=== PATIENT | female | born 1950 | race Caucasian/White ===

== ENCOUNTER 2019-05-06 12:06 | Observation (INO) | payer MEDICARE ==
[~2019-05-06] VITALS: Ht 175.3 cm; Wt 104.5 kg
[2019-05-06] MEDS ORDERED: LEVOXYL100 MCG PO (12:21)
[2019-05-06] MEDS ORDERED: LEVOXYL25 MCG PO (12:22)
[2019-05-06] MEDS ORDERED: NEURONTIN 300300 MG PO (12:24)
[2019-05-06] MEDS ORDERED: BYSTOLIC10 MG PO (12:24)
[2019-05-06] MEDS ORDERED: VITAMIN D31000 UNIT PO (12:25)
[2019-05-06] MEDS ORDERED: VITAMIN B-12500 MCG PO (12:25)
[2019-05-06] MEDS ORDERED: ASPIRIN81 MG PO (12:26)
[2019-05-06] MEDS ORDERED: LISINOPRIL20 MG PO (12:26)
[2019-05-06] MEDS ORDERED: ASCORBIC ACID500 MG PO (12:26)
[2019-05-06] MEDS ORDERED: LIPITOR40 MG PO (12:28)
[2019-05-06] MEDS ORDERED: FISH OIL 1,0001 CA1 PO (12:28)
[2019-05-06 12:40] LABS: BASOPHILS 0 % (0-2); EOSINOPHILS 0 % (0-7); HEMATOCRIT 36.6 % (36.0-48.0); HEMOGLOBIN 12.8 g/dL (12-16); IMMATURE GRANULOCYTES 0.4 % (0-5); LYMPHOCYTES 13.5 % (15-50); MCH 30.3 pg (26.0-34.0); MCV 86.5 fL (80.0-100.0); MEAN PLATELET VOLUME 9.8 fL (7.4-10.4); NEUTROPHILS 82.1 % (40-80); PLATELET COUNT 179 10x3/uL (130-400); RBC 4.23 10x6/uL (4.00-5.40); RDW 13.3 % (11.5-14.5); WBC 6.7 10x3/uL (4.8-10.8)
[2019-05-06 12:50] LABS: APTT 28.7 SECONDS (22.8-39.4); INR 1.06 (0.85-1.17); PROTIME 13.3 SECONDS (11.6-15.0)
[2019-05-06 12:53] LABS: CALC OSMOLALITY 291 mosm/kg (275-300); CALCIUM 9.2 mg/dL (8.5-10.1); CARBON DIOXIDE 23.2 mmol/L (21.0-32.0); CHLORIDE - SERUM 100 mmol/L (98-107); CREATININE - SERUM 0.9 mg/dL (0.6-1.3); GLUCOSE 398 mg/dL (74-106); POTASSIUM - SERUM 3.7 mmol/L (3.5-5.1); SODIUM 138 mmol/L (136-145); UREA NITROGEN 10 mg/dL (7-18); eGFR NON AFRICAN AMERICAN 65 mL/min (90-120)
[2019-05-06 13:32] LABS: ALBUMIN 3.9 g/dL (3.4-5.0); ALKALINE PHOSPHATASE 115 U/L (46-116); ALT (SGPT) 24 U/L (10-68); BILIRUBIN - TOTAL 0.65 mg/dL (0.2-1.3); CKMB 0.8 U/L (0.0-3.6); CREATINE KINASE 38 UL (21-215); MAGNESIUM - SERUM 1.6 mg/dL (1.8-2.4); PROTEIN - SERUM 7.2 g/dL (6.4-8.2)
[2019-05-06 13:33] LABS: TROPONIN-I < 0.017 ng/mL (0.000-0.060)
--- NOTE | 2019-05-06 14:49 | MORECARE ---
CASE MANAGEMENT DISCHARGE SUMMARY PATIENT: GRAZYNA LOPEZ UNIT: [id number] ADM DATE: 05/06/19 AGE: 69 : 48 SEX: F ROOM/BED: D.7672 AUTHOR: RIGOBERTO PATINO PHYSICIAN: REFERRING PHYSICIAN: CHAPIS HOLDEN MD DATE OF SERVICE: 05/06/19 Discharge Plan Patient Name: GRAZYNA LOPEZ Facility: [facility]:[place] : 1950 Planned Disposition: Anticipated Discharge Date: 05/07/19 Discharge Date: Expected LOS: 1 Initial Reviewer: [id number] Initial Review Date: 05/06/2019 Generated: 05/06/19 3:49 pm DCP- Discharge Planning Updated by [email or web address]: Irma Mackey on 05/06/19 1:[address] ROSS delivered, explained, signed by the patient, and placed in her chart. Signed form also left with patient. Patient also reported she parked her car in front of the Emergency Room Entrance due to having chest pain and not being able to walk up the hill to the entrance. CM spoke to [place] CM Director and Mor Road Advisor regarding moving her car. CM and Mor met with the patient, she gave verbal consent for Mor to move her car to the parking lot. Mor moved her car to the front row of the ER parking spaces, and returned her keys to her. Irma Mackey RN, CCM Coverage Notice Reviewer: [id number] - Irma Mackey Notice Issued Date-Time: 05/06/2019 13:23 Notice Type: Medicare Outpatient Observation Notice Notice Delivered To: Patient Relationship to Patient: Lining Machine Operator Name: Delivery Method: HAND - Hand Delivered Ivory Days: Prior Verbal Notification: Recipient Understood Notice: Recipient Signature: Med Rec Note Co-signed by Attending: Coverage Notice Comment: ROSS delivered, explained, signed by the patient, and placed in his chart. Signed form also left with patient. Irma Mackey RN , CCM Patient Name: GRAZYNA LOPEZ Page [phone] at 144 All edits/amendments must be made on the electronic document DICTATION DATE: 05/06/19 1445 COOKIE BREAKER: DM 05/06/19 144 RPT#: [id number] DC DATE: STATUS: ADM IN [facility] [address] [place] [address] END OF REPORT
--- NOTE | 2019-05-06 15:17 | NUR ---
TRIED TO CALL REPORT ONCE BEFORE AND AGAIN AT 1513 AND WAS TOLD THE ROOM WAS DIRTY AND COULD NOT BRING PT. NO REPORT WAS GIVEN.
[2019-05-06] MEDS ORDERED: ZOLOFT50 MG PO (16:33)
[2019-05-06] MEDS ORDERED: FUROSEMIDE40 MG PO (16:34)
[2019-05-06] MEDS ORDERED: K-TAB10 MEQ PO (16:34)
[2019-05-06] MEDS ORDERED: ALBUTEROL SULF8.5 GM INH (16:35)
--- NOTE | 2019-05-06 16:42 | NUR ---
RECIVED FROM ER PER WC TO ROOM 2122. ADMIT ASSESSMENT PER RN
[2019-05-06 17:00] LABS: T4 THYROXIN - FREE 1.06 ng/dL (0.76-1.46); THYROID STIMULATING HORMONE 2.38 uIU/mL (0.36-3.74)
[2019-05-06 17:02] VITALS: BP 127/70
[2019-05-06 17:10] VITALS: BP 127/70; BMI 34.0
[2019-05-06 18:13] LABS: KETONE - SERUM NEGATIVE (NEGATIVE)
[2019-05-06 19:29] LABS: CKMB 0.9 U/L (0.0-3.6); CREATINE KINASE 34 UL (21-215); TROPONIN-I 0.023 ng/mL (0.000-0.060)
--- NOTE | 2019-05-06 20:00 | NUR ---
RECIEVED BEDSIDE REPORT. EVENING ROUNDS COMPLETED. VSS, AAOX3, NO S/S OF DISTRESS. PT EKG DUE. ALTHOUGH NO EKG ELECTRODES AT THIS TIME. HAVE CALLED AND NOTIFIED AIR CONTROL/ANTI AIR WARFARE OFFICER FOR EKG ELECTRODES. PT DENIES ANY FURTHER NEEDS AT THIS TIME. WILL CPOC.
[2019-05-06 20:33] VITALS: BP 119/54
[2019-05-06 22:29] LABS: APPEARANCE CLEAR (CLEAR); COLOR YELLOW (YELLOW); NITRITE NEGATIVE (NEGATIVE); PROTEIN NEGATIVE (NEGATIVE)
[2019-05-06 22:30] LABS: BACTERIA MODERATE /hpf (NEGATIVE); BILIRUBIN NEGATIVE (NEGATIVE); GLUCOSE 1000 mg/dL (NEGATIVE); KETONE NEGATIVE (NEGATIVE); RED CELLS - URINE OCC /hpf (0-5); UROBILINOGEN NORMAL (NORMAL)
[2019-05-06 22:31] LABS: EPITHELIAL CELLS 0-5 /hpf (0-5)
[2019-05-07] VITALS (7 sets, daily range): BP systolic 99–147; BP diastolic 50–83; Ht 175.3 cm; Wt 104.5 kg
[2019-05-07 02:28] LABS: CKMB 1.2 U/L (0.0-3.6); CREATINE KINASE 33 UL (21-215); TROPONIN-I 0.017 ng/mL (0.000-0.060)
[2019-05-07 06:37] LABS: BASOPHILS 0 % (0-2); EOSINOPHILS 0 % (0-7); HEMOGLOBIN 12.3 g/dL (12-16); IMMATURE GRANULOCYTES 0.2 % (0-5); LYMPHOCYTES 17.2 % (15-50); MCH 29.7 pg (26.0-34.0); MCHC 34.2 g/dL (31.0-37.0); MONOCYTES 5.4 % (2-11); NEUTROPHILS 77.2 % (40-80); PLATELET COUNT 161 10x3/uL (130-400); RBC 4.14 10x6/uL (4.00-5.40); RDW 13.2 % (11.5-14.5); WBC 5.4 10x3/uL (4.8-10.8)
[2019-05-07 06:50] LABS: ALBUMIN 3.3 g/dL (3.4-5.0); ALKALINE PHOSPHATASE 86 U/L (46-116); ALT (SGPT) 19 U/L (10-68); BILIRUBIN - TOTAL 0.62 mg/dL (0.2-1.3); CALC OSMOLALITY 286 mosm/kg (275-300); CALCIUM 8.5 mg/dL (8.5-10.1); CARBON DIOXIDE 25.6 mmol/L (21.0-32.0); CHLORIDE - SERUM 104 mmol/L (98-107); CREATININE - SERUM 0.8 mg/dL (0.6-1.3); GLUCOSE 275 mg/dL (74-106); MAGNESIUM - SERUM 1.5 mg/dL (1.8-2.4); PHOSPHOROUS 3.4 mg/dL (2.5-4.9); POTASSIUM - SERUM 3.6 mmol/L (3.5-5.1); PROTEIN - SERUM 6.4 g/dL (6.4-8.2); SODIUM 139 mmol/L (136-145); UREA NITROGEN 11 mg/dL (7-18); eGFR NON AFRICAN AMERICAN 75 mL/min (90-120)
--- NOTE | 2019-05-07 07:10 | NUR ---
REPORT RECEIVED FROM DIRECT CARE WORKER AND PATIENT CARE ASSUMED. PATIENT LAYING IN BED ON BACK AWAKE, ALERT AND ORIENTED X 4. PATIENT DENIES ANY NEEDS OR PAIN. WILL CONTINUE WITH PLAN OF CARE. SR UP X 2 BED IN LOW POSITION AND CALL LIGHT IN REACH.
--- NOTE | 2019-05-07 11:32 | MORECARE ---
CASE MANAGEMENT DISCHARGE SUMMARY PATIENT: GRAZYNA LOPEZ UNIT: [id number] ADM DATE: 05/06/19 AGE: 69 : 48 SEX: F ROOM/BED: D.6742 AUTHOR: RIGOBERTO PATINO PHYSICIAN: REFERRING PHYSICIAN: CHAPIS HOLDEN MD DATE OF SERVICE: 05/07/19 Discharge Plan Patient Name: GRAZYNA LOPEZ Facility: [facility]:[place] : 1950 Planned Disposition: Home Anticipated Discharge Date: 05/07/19 Discharge Date: Expected LOS: 1 Initial Reviewer: [id number] Initial Review Date: 05/06/2019 Generated: 05/07/19 12:31 pm DCP- Discharge Planning Updated by [email or web address]: Irma Mackey on 05/06/19 1:[address] ROSS delivered, explained, signed by the patient, and placed in her chart. Signed form also left with patient. Patient also reported she parked her car in front of the Emergency Room Entrance due to having chest pain and not being able to walk up the hill to the entrance. CM spoke to [place] CM Director and Mor Flux Tube Attendant regarding moving her car. CM and Mor met with the patient, she gave verbal consent for Mor to move her car to the parking lot. Mro moved her car to the front row of the ER parking spaces, and returned her keys to her. Irma Mackey RN, CCM Coverage Notice Reviewer: [id number] - Irma Mackey Notice Issued Date-Time: 05/06/2019 13:23 Notice Type: Medicare Outpatient Observation Notice Notice Delivered To: Patient Relationship to Patient: Bar Staff Name: Delivery Method: HAND - Hand Delivered Ivory Days: Prior Verbal Notification: Recipient Understood Notice: Recipient Signature: Med Rec Note Co-signed by Attending: Coverage Notice Comment: ROSS delivered, explained, signed by the patient, and placed in his chart. Signed form also left with patient. Irma Mackey RN , CCM Last DP export: 05/06/19 1:49 p Patient Name: GRAZYNA LOPEZ Page 47815 at 1132 All edits/amendments must be made on the electronic document DICTATION DATE: 05/07/19 113 PLANT AND EQUIPMENT WORKER: GLADYS 05/07/19 1131 RPT#: [id number] DC DATE: STATUS: ADM IN [facility] [address] [place] [address] END OF REPORT
--- NOTE | 2019-05-07 11:52 | MORECARE ---
CASE MANAGEMENT DISCHARGE SUMMARY PATIENT: GRAZYNA LOPEZ UNIT: [id number] ADM DATE: 05/06/19 AGE: 69 : 48 SEX: F ROOM/BED: D.3636 AUTHOR: SUKUMAR,DOC PHYSICIAN: REFERRING PHYSICIAN: CHAPIS HOLDEN MD DATE OF SERVICE: 05/07/19 Discharge Plan Patient Name: GRAZYNA LOPEZ Facility: [facility]:[place] : 1950 Planned Disposition: Home Anticipated Discharge Date: 05/07/19 Discharge Date: Expected LOS: 1 Initial Reviewer: [id number] Initial Review Date: 05/06/2019 Generated: 05/07/19 12:52 pm Comments DCP- Discharge Planning Updated by [id number]: Ezio Vazquez on 05/07/19 10:[address] Patient Name: GRAZYNA LOPEZ Encounter No: [id number] : 1950 Primary Insurance: [employer] MEDICARE ADV Anticipated DC Date: 05-07-2019 Planned Disposition: Home DCP follow-up note: CM RECEIVED MESSAGE FROM SHRUTI OF NUCLEAR MEDICINE ASKING TO SPEAK TO CM SOON POSSIBLE. CM MET WITH SHRUTI WHO INFORMED CM THAT PT IS REFUSING CARIOLYTE STRESS TEST BECAUSE IT IS NOT COVERED BY INSURANCE. CM MET WITH PT IN ROOM. PT REPORTS THAT THE GIRL YESTERDAY TOLD HER THAT NOTHING WAS GOING TO BE PAID FOR BY INSUARANCE AND SHE NEEDS TO GET STANDARD MEDICARE. PT PRODUCED "ROSS" FORM FROM MEDICARE. CM ATTEMPTED TO EXPLAIN THAT THE NOTICE ONLY EXPLAINS THAT PT IS IN OBSERVATION AND.....PT CUT CM OFF AND LOUDLY INFORMED CM THAT SHE IS NOT GOING TO HAVE TESTS AND BE STUCK WITH A BIG BILL. CM ASKED FOR PT'S INSURANCE CARD. PT HAS NOT CALLED HER INSURANCE COMPANY. CM EDUCATED PT THAT SHE MAY CALL THE TOLL FREE NUMBER TO HER INSURANCE TO FIND OUT WHAT SERVICES WILL BE COVERED. PT DID NOT WANT TO DO THIS. CM OFFERED TO CALL PT'S INSURANCE COMPANY, PT ACCEPTED. CM CALLED [employer], SPOKE TO LORENA AND ASKED ABOUT CARDIOLYTE STRESS TEST IN OBSERVATION STATUS. LORENA ADVISED PT HAS $50 COPAY FOR TEST. REFERENCE # [id number]. CM NOTIFIED PT AND PROVIDED ALL INFORMATION RELATED TO PHONE CALL. CM ADVISED PT THAT SHE WOULD BE BILLED ANY COPAYS AFTER BILLING HAS BEEN PROCESSED. PT STATES SHE WILL ACCEPT THE TEST. SHRUTI NOTIFIED WHO MET WITH PT TO DISCUSS THE STRESS TEST. A FEW MINUTES LATER, SHRUTI NOTIFIED CM THAT PT PROVIDED A CHECK FOR HER $50 COPAY. CM CALLED AND SPOKE TO CM DIRECTOR STEPHEN WHO NOTIFIED BUSINESS OFFICE. TARUN GEORGE PICKED UP CHECK AND WILL PROVIDE PT WITH RECEIPT. CM TO CONTINUE TO FOLLOW AND ASSIST NEEDED. Ezio Vazquez, CASE MANAGEMENT DCP- Discharge Planning Updated by [email or web address]: Irma Mackey on 05/06/19 1:[address] ROSS delivered, explained, signed by the patient, and placed in her chart. Signed form also left with patient. Patient also reported she parked her car in front of the Emergency Room Entrance due to having chest pain and not being able to walk up the hill to the entrance. CM spoke to [place] CM Director and [facility] Comsec Manager regarding moving her car. CM and Mor met with the patient, she gave verbal consent for Mor to move her car to the parking lot. Mor moved her car to the front row of the ER parking spaces, and returned her keys to her. Irma Mackey RN, CCM Coverage Notice Reviewer: [id number] - Irma Mackey Notice Issued Date-Time: 05/06/2019 13:23 Notice Type: Medicare Outpatient Observation Notice Notice Delivered To: Patient Relationship to Patient: Immunologist Name: Delivery Method: HAND - Hand Delivered Ivory Days: Prior Verbal Notification: Recipient Understood Notice: Recipient Signature: Med Rec Note Co-signed by Attending: Coverage Notice Comment: ROSS delivered, explained, signed by the patient, and placed in his chart. Signed form also left with patient. Irma Mackey RN , CCM Last DP export: 05/07/19 10:32 a Patient Name: GRAZYNA LOPEZ Page 52723 at 1152 All edits/amendments must be made on the electronic document DICTATION DATE: 05/07/19 1152 MANAGER OF HUMAN RESOURCES: GLADYS 05/07/19 115 RPT#: [id number] DC DATE: STATUS: ADM IN [facility] [address] [place] [address] END OF REPORT
--- NOTE | 2019-05-07 13:02 | NUR ---
PATIENBT LAYING IN BED ON BACK. RE-SITED IV TO RT OUTER FOREARM 22 G. PATIENT TOLERATED WELL. PATIENT IS STABLE AND VSS. PATIENT DENIES ANY NEEDS OR PAIN. WILL CONTINUE TO MONITOR. SR UP X 2 BED IN LOW POSITION AND CALL LIGHT IN REACH.
--- NOTE | 2019-05-07 16:34 | NUR ---
PATIENT HAD NUC STRESS TEST. PATIENT BACK TO ROOM. PATIENT IS STABLE AND VSS. PATIENT DENIES ANY NEEDS OR PAIN. WILL CONTINUE TO MONITOR. SR UP X 2 BED IN LOW POSITION AND CALL LIGHT IN REACH.
[2019-05-08 04:00] VITALS: BP 106/62
--- NOTE | 2019-05-08 07:10 | NUR ---
REPORT RECEIVED FROM POULTRY PATHOLOGIST AND PATIENT CARE ASSUMED. PATIENT SITTING UP IN BED AWAKE, ALERT AND ORIENTED X 4. PAITENT IS STABLE AND VSS. PATIENT COMPLAINS OF NAUSEA. MEDICATED PER MAR WITH ZOFRAN 4 MG IV. WILL CONTINUE TO MONITOR. SR UP X 2 BED IN LOW POSITION AND CALL LIGHT IN REACH.
[2019-05-08 08:03] VITALS: BP 122/70
[2019-05-08] MEDS ORDERED: GLUCOPHAGE500 MG PO (10:54)
[2019-05-08 12:19] VITALS: BP 124/71
--- NOTE | 2019-05-08 13:00 | NUR ---
PATIENT IS STABLE AND VSS. PATIENT DENIES ANY PAIN OR NEEDS. PATIENT IS DCD HOME FOR SELF CARE. WRITTEN AND VERBAL ORDERS GIVEN. PATIENT VERBALIZED UNDERSTANDING AND SIGNED PAPERWORK. IV DCD WITHOUT DIFFICULTY AND PRESSURE BANDAGE APPLIED. ENTIRE CATHETER WAS INTACT. PATIENT TO FRONT DOOR VIA WC ACCOMPANIED BY HOSPITAL PERSONNEL TO PRIVATE VEHICLE DRIVEN BY FRIEND.
--- NOTE | 2019-05-08 14:30 | NUR ---
Nutrition Follow-up: Visited with pt again today to discuss diabetic diet. Pt reports that her DM is not new and was diagnosed in 2012 or 2013. Also reports that she never received detailed diabetic education and is interested in OP DM educ. Drinks diet sodas occasionally (denies regular soda) and has decreased intake of concentrated sweets. Diet: ADA/AHA PO intake: 100% Wt: 230# Last BM: 05/07 Labs noted: Glu 275 Meds noted: Glucophage -Discussed diabetic diet. Questions answered. -Rec OP DM education.
--- NOTE | 2019-05-09 09:47 | MORECARE ---
CASE MANAGEMENT DISCHARGE SUMMARY PATIENT: GRAZYNA LOPEZ UNIT: [id number] ADM DATE: 05/06/19 AGE: 69 : 48 SEX: F ROOM/BED: D.3931 AUTHOR: SUKUMAR,DOC PHYSICIAN: REFERRING PHYSICIAN: CHAPIS HOLDEN MD DATE OF SERVICE: 05/09/19 Discharge Plan Patient Name: GRAZYNA LOPEZ Facility: [facility]:[place] : 1950 Planned Disposition: Home Anticipated Discharge Date: 05/08/19 Discharge Date: 05/08/2019 Expected LOS: 2 Initial Reviewer: [id number] Initial Review Date: 05/06/2019 Generated: 05/09/19 10:47 am DCP- Discharge Planning Updated by [email or web address]: Ezio Vazquez on 05/07/19 10:[address] Patient Name: GRAZYNA LOPEZ Encounter No: [id number] : 1950 Primary Insurance: [employer] MEDICARE ADV Anticipated DC Date: 05-07-2019 Planned Disposition: Home DCP follow-up note: CM RECEIVED MESSAGE FROM SHRUTI OF NUCLEAR MEDICINE ASKING TO SPEAK TO CM SOON POSSIBLE. CM MET WITH SHRUTI WHO INFORMED CM THAT PT IS REFUSING CARIOLYTE STRESS TEST BECAUSE IT IS NOT COVERED BY INSURANCE. CM MET WITH PT IN ROOM. PT REPORTS THAT THE GIRL YESTERDAY TOLD HER THAT NOTHING WAS GOING TO BE PAID FOR BY INSUARANCE AND SHE NEEDS TO GET STANDARD MEDICARE. PT PRODUCED "ROSS" FORM FROM MEDICARE. CM ATTEMPTED TO EXPLAIN THAT THE NOTICE ONLY EXPLAINS THAT PT IS IN OBSERVATION AND.....PT CUT CM OFF AND LOUDLY INFORMED CM THAT SHE IS NOT GOING TO HAVE TESTS AND BE STUCK WITH A BIG BILL. CM ASKED FOR PT'S INSURANCE CARD. PT HAS NOT CALLED HER INSURANCE COMPANY. CM EDUCATED PT THAT SHE MAY CALL THE TOLL FREE NUMBER TO HER INSURANCE TO FIND OUT WHAT SERVICES WILL BE COVERED. PT DID NOT WANT TO DO THIS. CM OFFERED TO CALL PT'S INSURANCE COMPANY, PT ACCEPTED. CM CALLED [employer], SPOKE TO LORENA AND ASKED ABOUT CARDIOLYTE STRESS TEST IN OBSERVATION STATUS. LORENA ADVISED PT HAS $50 COPAY FOR TEST. REFERENCE # [id number]. CM NOTIFIED PT AND PROVIDED ALL INFORMATION RELATED TO PHONE CALL. CM ADVISED PT THAT SHE WOULD BE BILLED ANY COPAYS AFTER BILLING HAS BEEN PROCESSED. PT STATES SHE WILL ACCEPT THE TEST. SHRUTI NOTIFIED WHO MET WITH PT TO DISCUSS THE STRESS TEST. A FEW MINUTES LATER, SHRUTI NOTIFIED CM THAT PT PROVIDED A CHECK FOR HER $50 COPAY. CM CALLED AND SPOKE TO CM DIRECTOR STEPHEN WHO NOTIFIED BUSINESS OFFICE. TARUN VAZQUEZ PICKED UP CHECK AND WILL PROVIDE PT WITH RECEIPT. CM TO CONTINUE TO FOLLOW AND ASSIST NEEDED. Ezio Vazquez, CASE MANAGEMENT DCP- Discharge Planning Updated by [id number]: Irma Mackey on 05/06/19 1:[address] ROSS delivered, explained, signed by the patient, and placed in her chart. Signed form also left with patient. Patient also reported she parked her car in front of the Emergency Room Entrance due to having chest pain and not being able to walk up the hill to the entrance. CM spoke to [place] CM Director and [facility] Microfilm Equipment Inspector regarding moving her car. CHAS and Mor met with the patient, she gave verbal consent for Mor to move her car to the parking lot. Mor moved her car to the front row of the ER parking spaces, and returned her keys to her. Irma Mackey RN, CCM Coverage Notice Reviewer: [id number] - Irma Mackey Notice Issued Date-Time: 05/06/2019 13:23 Notice Type: Medicare Outpatient Observation Notice Notice Delivered To: Patient Relationship to Patient: Retail Business Manager Name: Delivery Method: HAND - Hand Delivered Ivory Days: Prior Verbal Notification: Recipient Understood Notice: Recipient Signature: Med Rec Note Co-signed by Attending: Coverage Notice Comment: ROSS delivered, explained, signed by the patient, and placed in his chart. Signed form also left with patient. Irma Mackey RN , CCM Last DP export: 05/07/19 10:52 a Patient Name: GRAZYNA LOPEZ Page [phone] Electronically Signed by RIGOBERTO [facility] OKLAHOMA CITYKarlos on 05/09/19 at 0947 All edits/amendments must be made on the electronic document DICTATION DATE: 05/09/19946 [employer]OL [employer] HEAD COOK: GLADYS 05/09/19946 RPT#: [id number] DC DATE:05/08/19 STATUS: DIS IN [place] [address] [place] [address] END OF REPORT
== END 2019-05-08 13:00 | disposition home or self-care (01) ==
LOC: D.ER 12:06 → D.M2 13:20 → OBSVTIME 13:36 → D.M2 05-08 13:00
PROVIDERS: Family Medicine; ADMIT Internal Medicine Nephrology; ATTEND Internal Medicine Nephrology
DX: I25.119 Atherosclerotic heart disease of native coronary artery with unspecified angina pectoris (principal); R00.2 Palpitations; E11.9 Type 2 diabetes mellitus without complications; E83.42 Hypomagnesemia; I10 Essential (primary) hypertension; E78.5 Hyperlipidemia, unspecified; E03.9 Hypothyroidism, unspecified; F41.8 Other specified anxiety disorders

== ENCOUNTER → 2019-07-30 08:09 | Outpatient (CLI) | payer MEDICARE ==
[2019-05-07 13:41] VITALS: BMI 33.9
[~2019-07-30 08:09] MED LIST: ALBUTEROL SULF8.5 GM INH; ASCORBIC ACID500 MG PO; ASPIRIN81 MG PO; BYSTOLIC10 MG PO; FISH OIL 1,0001 CA1 PO; FUROSEMIDE40 MG PO; GLUCOPHAGE500 MG PO; K-TAB10 MEQ PO; LEVOXYL100 MCG PO; LEVOXYL25 MCG PO; LIPITOR40 MG PO; LISINOPRIL20 MG PO; NEURONTIN 300300 MG PO; VITAMIN B-12500 MCG PO; VITAMIN D31000 UNIT PO; ZOLOFT50 MG PO
== END | disposition home or self-care (01) ==
LOC: D.RAD 08:09
PROVIDERS: ATTEND Family Medicine
DX: R13.10 Dysphagia, unspecified (principal)

== ENCOUNTER 2019-08-09 19:03 | Observation (INO) | payer MEDICARE ==
[~2019-08-09] VITALS: Ht 180.3 cm; Wt 104.5 kg
[2019-08-09] MEDS ORDERED: GLUCOTROL ER2.5 MG PO (19:09)
[2019-08-09 19:29] LABS: BASOPHILS 0 % (0-2); EOSINOPHILS 0 % (0-7); HEMATOCRIT 36.5 % (36.0-48.0); HEMOGLOBIN 12.4 g/dL (12-16); IMMATURE GRANULOCYTES 0.2 % (0-5); LYMPHOCYTES 7.2 % (15-50); MCV 88.2 fL (80.0-100.0); MEAN PLATELET VOLUME 9.3 fL (7.4-10.4); MONOCYTES 5.1 % (2-11); NEUTROPHILS 87.5 % (40-80); PLATELET COUNT 167 10x3/uL (130-400); RBC 4.14 10x6/uL (4.00-5.40); RDW 14.3 % (11.5-14.5); WBC 12.3 10x3/uL (4.8-10.8)
[2019-08-09 19:40] LABS: CALC OSMOLALITY 289 mosm/kg (275-300); CALCIUM 8.7 mg/dL (8.5-10.1); CARBON DIOXIDE 28.2 mmol/L (21.0-32.0); CHLORIDE - SERUM 106 mmol/L (98-107); CREATININE - SERUM 0.8 mg/dL (0.6-1.3); POTASSIUM - SERUM 3.5 mmol/L (3.5-5.1); SODIUM 143 mmol/L (136-145); UREA NITROGEN 19 mg/dL (7-18); eGFR NON AFRICAN AMERICAN 75 mL/min (90-120)
[2019-08-09 19:41] LABS: GLUCOSE 145 mg/dL (74-106)
[2019-08-09 19:54] LABS: ALBUMIN 3.8 g/dL (3.4-5.0); ALKALINE PHOSPHATASE 77 U/L (30-120); ALT (SGPT) 20 U/L (10-68); BILIRUBIN - TOTAL 0.71 mg/dL (0.2-1.3); LIPASE 135 U/L (73-393); PROTEIN - SERUM 6.9 g/dL (6.4-8.2); THYROID STIMULATING HORMONE 5.56 uIU/mL (0.36-3.74)
[2019-08-09 19:59] LABS: BILIRUBIN NEGATIVE (NEGATIVE); GLUCOSE NEGATIVE (NEGATIVE); KETONE NEGATIVE (NEGATIVE); NITRITE NEGATIVE (NEGATIVE); SPECIFIC GRAVITY 1.015 (1.005-1.020); UROBILINOGEN NORMAL (NORMAL)
[2019-08-09 20:01] LABS: TROPONIN-I < 0.017 ng/mL (0.000-0.060)
[2019-08-09 20:02] LABS: BACTERIA FEW /hpf (NEGATIVE); EPITHELIAL CELLS 0-5 /hpf (0-5); RED CELLS - URINE 0-5 /hpf (0-5); WHITE CELLS - URINE 0-5 /hpf (NEGATIVE)
--- NOTE | 2019-08-09 20:25 | NUR ---
REPOSITIONED PATIENT FOR COMFORT. PROVIDED WITH WARM BLANKET. NO DISTRESS NOTED. COLOR WNL FOR RACE. RESPIRATIONS ARE EVEN AND UNLABORED. WILL CONTINUE TO MONITOR.
[2019-08-09 20:52] VITALS: BP 121/48
--- NOTE | 2019-08-09 21:50 | NUR ---
RECEIVED PT FROM ER VIA STRETCHER. ALERT AND ORIENTED X4. RESP EVEN AND NONLABORED. THINKS SHE ATE SOME "BAD CHICKEN." NO VOMITING AT THIS TIME. DENIES DIARRHEA. NS WITH 20 MEQ KCL @ 125 ML/HR INFUSING IN LT AC. NO DISTRESS. SR ELEVATED X2. CL IN REACH. AMB WITH ASSIST X1. GEN WEAKNESS NOTED.
[2019-08-09] MEDS ORDERED: MELATONIN10 M1 PO (22:09)
[2019-08-09 22:18] VITALS: BP 128/84; Ht 180.3 cm; Wt 104.5 kg
[2019-08-10] VITALS: BP 123/43
--- NOTE | 2019-08-10 03:27 | NUR ---
HAS RESTED WELL SO FAR THIS SHIFT. NO VOMITING NOTED. CL IN REACH.
[2019-08-10 04:00] VITALS: BP 122/44
[2019-08-10 06:12] LABS: BASOPHILS 0 % (0-2); EOSINOPHILS 0 % (0-7); HEMATOCRIT 30.4 % (36.0-48.0); HEMOGLOBIN 10.2 g/dL (12-16); IMMATURE GRANULOCYTES 0.2 % (0-5); LYMPHOCYTES 19.9 % (15-50); MCH 29.4 pg (26.0-34.0); MCHC 33.6 g/dL (31.0-37.0); MCV 87.6 fL (80.0-100.0); MEAN PLATELET VOLUME 9.3 fL (7.4-10.4); MONOCYTES 4.7 % (2-11); NEUTROPHILS 75.2 % (40-80); PLATELET COUNT 142 10x3/uL (130-400); RBC 3.47 10x6/uL (4.00-5.40); RDW 14.3 % (11.5-14.5)
[2019-08-10 06:20] LABS: WBC 4.9 10x3/uL (4.8-10.8)
[2019-08-10 06:33] LABS: CALC OSMOLALITY 284 mosm/kg (275-300); CARBON DIOXIDE 25.1 mmol/L (21.0-32.0); CHLORIDE - SERUM 108 mmol/L (98-107); CREATININE - SERUM 0.8 mg/dL (0.6-1.3); GLUCOSE 158 mg/dL (74-106); POTASSIUM - SERUM 3.8 mmol/L (3.5-5.1); SODIUM 141 mmol/L (136-145); UREA NITROGEN 16 mg/dL (7-18); eGFR NON AFRICAN AMERICAN 75 mL/min (90-120)
--- NOTE | 2019-08-10 09:00 | NUR ---
ALERT AND ORIENTED X4. FALL PRECAUTIONS IN PLACE AND ENCOURAGED TO USE CALL LIGHT FOR ASSSIT.PT UP WITH SBA TO BATHROOM. ABDOMEN OBESE WITH PANNUS SOFT WITH BOWEL SOUNDS NOTED X4 W/O TENDERNESS. HRRR AND LUNGS CTA. NO PERIPHERAL EDEMA NOTED. DENIES ANY PAIN OR DISCOMFORT.
[2019-08-10 09:43] VITALS: BP 131/46
[2019-08-10 12:53] VITALS: BP 126/50
--- NOTE | 2019-08-10 15:40 | NUR ---
IV DISCONTINUED AND VERBALIZED UNDERSTANDING OF DISCHARGE INSTRUCTIONS. STABLE AT TIME OF DEPARTURE.
--- NOTE | 2019-08-13 06:54 | MORECARE ---
CASE MANAGEMENT DISCHARGE SUMMARY PATIENT: GRAZYNA LOPEZ UNIT: [id number] ADM DATE: 08/09/19 AGE: 69 : 48 SEX: F ROOM/BED: D.[facility] AUTHOR: RIGOBERTO PATINO PHYSICIAN: REFERRING PHYSICIAN: MADISON ZUÑIGA MD DATE OF SERVICE: 08/13/19 Discharge Plan Patient Name: GRAZYNA LOPEZ [facility] : 1950 Planned Disposition: Anticipated Discharge Date: Discharge Date: 08/10/2019 Expected LOS: Initial Reviewer: [id number] Initial Review Date: 08/13/2019 Generated: 08/13/19 7:54 am Patient Name: GRAZYNA LOPEZ Page [phone] at 0654 All edits/amendments must be made on the electronic document DICTATION DATE: 08/13/1954 CONTRACTS REPRESENTATIVE: GLADYS 08/13/19 0654 RPT#: [id number] DC DATE:08/10/19 STATUS: DIS IN [facility] [address] [facility] [place] [address] END OF REPORT
== END 2019-08-10 15:40 | disposition home or self-care (01) ==
LOC: D.ER 19:03 → D.MS 20:56 → OBSVTIME 20:56 → D.ER 20:56 → D.MS 20:56 → D.SDCHOLD 08-12 12:05 → D.MS 08-12 12:05 → D.SDCHOLD 08-12 12:06
PROVIDERS: Emergency Medicine; ADMIT Emergency Medicine; ATTEND Emergency Medicine
DX: K52.89 Other specified noninfective gastroenteritis and colitis (principal); E86.0 Dehydration; R11.2 Nausea with vomiting, unspecified; E11.40 Type 2 diabetes mellitus with diabetic neuropathy, unspecified; E78.5 Hyperlipidemia, unspecified; E03.9 Hypothyroidism, unspecified; D86.9 Sarcoidosis, unspecified; M32.9 Systemic lupus erythematosus, unspecified; K58.9 Irritable bowel syndrome, unspecified; F41.8 Other specified anxiety disorders

== ENCOUNTER → 2019-12-25 12:30 | Outpatient (CLI) | payer MEDICARE, OTHER ==
[2019-08-09 22:18] VITALS: BMI 32.1
[~2019-12-25 12:30] MED LIST changes: +GLUCOTROL ER2.5 MG PO; +MELATONIN10 M1 PO
== END | disposition home or self-care (01) ==
LOC: D.CT 12:30
PROVIDERS: ATTEND Family Medicine
DX: W19.XXXA Unspecified fall, initial encounter (principal)